=== PATIENT | female | born 1970 | race Two or more races ===

== ENCOUNTER 2022-01-01 16:45 | Outpatient (REF) | payer MEDICAID, OTHER, SELFPAY ==
--- NOTE | ~2022-01-01 | XR_ITS ---
EXAMINATION: XR ELBOW, RIGHT XR ANKLE, LEFT CLINICAL INFORMATION: Right elbow pain. Left ankle and foot pain. COMPARISON: None TECHNIQUE: AP, oblique, and lateral views of the right elbow. AP, mortise, and lateral views of the left ankle. FINDINGS: RIGHT ELBOW: No acute fracture or dislocation. No joint space narrowing or marginal osteophytes. No osseous erosion. No abnormal soft tissue calcification. No significant joint effusion. LEFT ANKLE: No acute fracture or dislocation. No joint space narrowing. Tiny tibiotalar marginal osteophytes. No osseous erosion. Plantar calcaneal spur. Mild circumferential soft tissue swelling. XR/XR elbow RT min 3V IMPRESSION: RIGHT ELBOW: Unremarkable examination. LEFT ANKLE: Mild circumferential soft tissue swelling without acute osseous abnormality. Minimal tibiotalar osteoarthritis. Plantar calcaneal spur.
--- NOTE | ~2022-01-01 | XR_ITS ---
EXAMINATION: XR ELBOW, RIGHT XR ANKLE, LEFT CLINICAL INFORMATION: Right elbow pain. Left ankle and foot pain. COMPARISON: None TECHNIQUE: AP, oblique, and lateral views of the right elbow. AP, mortise, and lateral views of the left ankle. FINDINGS: RIGHT ELBOW: No acute fracture or dislocation. No joint space narrowing or marginal osteophytes. No osseous erosion. No abnormal soft tissue calcification. No significant joint effusion. LEFT ANKLE: No acute fracture or dislocation. No joint space narrowing. Tiny tibiotalar marginal osteophytes. No osseous erosion. Plantar calcaneal spur. Mild circumferential soft tissue swelling. XR/XR ankle LT min 3V IMPRESSION: RIGHT ELBOW: Unremarkable examination. LEFT ANKLE: Mild circumferential soft tissue swelling without acute osseous abnormality. Minimal tibiotalar osteoarthritis. Plantar calcaneal spur.
== END 2022-01-01 16:46 | disposition home or self-care (01) ==
LOC: HO.XRAY 16:45
PROVIDERS: Visit Provider Emergency Medicine
DX: M25.521 Pain in right elbow (principal); M25.572 Pain in left ankle and joints of left foot
CPT/HCPCS: 73080; 73610